=== PATIENT | male | born 1950 | race Caucasian/White ===

== ENCOUNTER 2017-07-24 05:57 | Inpatient (IN) | payer MEDICARE ==
--- NOTE | 2017-07-21 14:48 | Diagnostic Imaging Report ---
PROCEDURE: Frontal and lateral views of the chest. COMPARISON: None. INDICATIONS: PRE OPERATIVE CHEST X-RAY FOR KNEE SURGERY FINDINGS: Lines/tubes: None. Lungs: Hypoinflated lungs. Linear opacity in the lingula likely reflects subsegmental atelectasis. There is no evidence of consolidation or pulmonary edema. Pleura: There is no pleural effusion or pneumothorax. Eventration of the posterior left hemidiaphragm. Heart and mediastinum: Cardiac silhouette is unremarkable. Pulmonary vasculature is normal. Bones: No acute bony abnormality. IMPRESSION: 1. hypoinflated lungs, without acute cardiopulmonary abnormalities. Fam Fuchs M.D. Dictated by: Fam Fuchs M.D. on 07/21/2017 at 14:57 Electronically approved by: Fam Fuchs M.D. on 07/21/2017 at 14:57
[~2017-07-24] VITALS: Ht 180.3 cm; Wt 108.9 kg
[~2017-07-24 05:57] MED LIST: CELECOXIB 200 MG CAP ONE; DEXAMETHASONE SOD PHOS 10 MG/1 ML VIAL ONE; GABAPENTIN 300 MG CAP ONE; OXYBUTYNIN CHLOR5 MG PO; PAROXETINE HCL40 MG PO
[2017-07-24] MEDS ORDERED: VANCOMYCIN 1GM/NS 250 ML 250 ML ONE (05:58)
--- OUTSIDE RECORDS SUMMARY | 2017-07-24 05:59 | XMS REPORT ---
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 Allergies, Adverse Reactions, Alerts This patient has no known allergies or adverse reactions. Medications This patient has no known medications. Results Test Description Test Time Test Comments Text Results Atomic Results Result Comments CHEST 2 VIEWS [place] [address] Patient Name: LOUIE LLOYD MR #: [id number] : 1950 Age/Sex: 67/M Req # : [id number] Adm Physician: Ordered by: KARLO SAGASTUME MD Report #: [id number] Location: OR Room/Bed: Procedure: [id number] DX/CHEST 2 VIEWS Exam Date: 07/21/17 Exam Time: 1410 REPORT STATUS: Signed PROCEDURE: Frontal and lateral views of the chest. COMPARISON: None. INDICATIONS: PRE OPERATIVE CHEST X- RAY FOR KNEE SURGERY FINDINGS: Lines/tubes: None. Lungs: Hypoinflated lungs. Linear opacity in the lingula likely reflects subsegmental atelectasis. There is no evidence of consolidation or pulmonary edema. Pleura: There is no pleural effusion or pneumothorax. Eventration of the posterior left hemidiaphragm. Heart and mediastinum: Cardiac silhouette is unremarkable. Pulmonary vasculature is normal. Bones: No acute bony abnormality. IMPRESSION: 1. hypoinflated lungs, without acute cardiopulmonary abnormalities. Guera Fuchs M.D. Dictated by: Guera Fuchs M.D. on 07/21/2017 at 14:57 Electronically approved by: Guera Fuchs M.D. on 07/21/2017 at 14:57 Dictated By: GUERA FUCHS MD [id number] Transcribed By: MONTSERRAT on 07/21/17 [id number] COPY TO: KARLO SAGASTUME MD
[2017-07-24] MEDS ORDERED: MUPIROCIN 2% OINT 22 GM TUBE ONE (06:13)
[2017-07-24] MEDS ORDERED: TRANEXAMIC ACID 1,000 MG/10 ML ML ONE (06:13)
[2017-07-24] MEDS ORDERED: BACITRACIN 50,000 UNIT VIAL ONE (06:14)
[2017-07-24] MEDS ORDERED: LIDOCAINE 1% W/EPINEPHRINE 20 ML VIAL ONE (06:50)
[2017-07-24] MEDS ORDERED: ROPIVACAINE 0.5% 5 MG/ML 30 ML SDV ONE (06:50)
[2017-07-24] MEDS ORDERED: ROPIVACAINE 246.25 MG, EPINEPHRINE HCL 1:1000 0.5 MG, CLONIDINE HCL 0.08 MG, KETOROLAC ... INJ ONE ×5 (07:30)
[2017-07-24] MEDS ORDERED: DOCUSATE SODIUM 100 MG CAP PO PRN (08:45)
[2017-07-24] MEDS ORDERED: ACETAMINOPHEN 650 MG SUPP PR PRN (08:45)
[2017-07-24] MEDS ORDERED: DIPHENHYDRAMINE HCL INJ 50 MG/ML VIAL IM/IV PRN (08:45)
[2017-07-24] MEDS ORDERED: PROMETHAZINE HCL (IM) 25 MG/ML VIAL IM PRN (08:45)
[2017-07-24] MEDS ORDERED: KETOROLAC TROMETHAMINE 30 MG/ML VIAL IV PRN (08:45)
[2017-07-24] MEDS ORDERED: HYDROCODONE/APAP 5MG-325MG TAB PO PRN (08:45)
[2017-07-24] MEDS ORDERED: ONDANSETRON HCL INJ 2 MG/ML VIAL IV PRN (08:45)
--- NOTE | 2017-07-24 09:41 | Diagnostic Imaging Report ---
PROCEDURE:KNEE LEFT 1-2 VIEWS TECHNIQUE:AP and crosstable lateral views left knee INDICATION:Postoperative evaluation COMPARISON:None. FINDINGS: See conclusion. CONCLUSION: 1. Total left knee arthroplasty intact and in anatomic alignment. 2. Expected postsurgical changes including soft tissue swelling, joint gas, fluid and overlying surgical yue. 3. No acute abnormality. Dictated by: Oj Zafar M.D. on 07/24/2017 at 9:50 Electronically approved by: Oj Zafar M.D. on 07/24/2017 at 9:50
[2017-07-24] MEDS ORDERED: FENTANYL CITRATE/PF 100MCG/2 ML INJ ONE ×2 (10:56→18:36)
--- NOTE | 2017-07-24 11:16 | Operative Report ---
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 Throughout this case, my PA's assistance was necessary for retraction of soft tissue and positioning of the extremity. This allows for efficient and technically successful execution of the operation and is considered medically necessary. PREOPERATIVE DIAGNOSIS: Osteoarthritis, left knee. POSTOPERATIVE DIAGNOSIS: Osteoarthritis, left knee. PROCEDURE: Left total knee arthroplasty. INDICATIONS: The patient is a 67-year-old gentleman who has end-stage arthritis of his left knee. He has failed conservative management and would now like to proceed with a left total knee replacement. The risks and benefits have been explained. The recovery and hospital stay have been discussed. The implants have been discussed. He states he understands and wishes to proceed. DESCRIPTION OF PROCEDURE: The patient was brought to the operating room and placed under general anesthetic. He received a regional block, prophylactic antibiotics, and tranexamic acid in the holding area. His left lower extremity was prepped and draped in a sterile manner. A preoperative time out was performed. The extremity was exsanguinated and a proximal tourniquet was inflated to 300 mmHg. A standard anterior approach with a medial parapatellar arthrotomy was performed. Clear synovial fluid was removed from the joint. A slightly more extensive medial soft tissue release than normal was necessary due to his varus malalignment. The knee was brought up into flexion with the patella everted. The remnant of the cruciate ligaments were excised. Marginal osteophytes and meniscal remnants were removed. A Hernandez and Nephew posterior stabilized Selene II knee system was used throughout the case. An extramedullary cutting guide was used to resect the proximal tibia. The cut was referenced off of the least affected lateral compartment. The tibial baseplate was a size #7. The central fin punch was impacted and attention was directed towards the distal femur. An intramedullary cutting guide was used to resect the distal femur in 6 degrees of valgus and rotation referenced off of a combination of landmarks including the posterior condyles, Whitesides line, and the epicondylar axis. The femoral component was also a size #7. The anterior and posterior chamfer cuts were made. Trial reductions were performed. A 9 mm tibial insert provided optimal soft tissue balancing in flexion and extension. The patella was then resurfaced with a 32 mm x 7.5 mm patellar button. The thickness was checked before and after resurfacing and was right at 23 mm. Patellar tracking was noted to be concentric. The trial implants were then removed. A 100 mL premixed pericapsular ELISEO injection was placed into the soft tissue. The knee was thoroughly irrigated with a Pulsavac. The components were cemented into place using a single mix of high-viscosity Simplex cement, pre-loaded with antibiotics. Care was taken to remove all extravasated cement. The wound was further irrigated while the cement cured. The arthrotomy was then closed with interrupted #1 Ethibond. The knee was put through flexion and extension to ensure a secure closure. The skin was closed with subcuticular Vicryl and yue. A sterile bandage was applied. The patient was extubated and transported to the recovery room in stable condition. Estimated blood loss was minimal. All needle and sponge counts were correct. Job#: [id number] BLAISE
[2017-07-24 12:35] VITALS: BP 90/44
[2017-07-24] MEDS: SODIUM CHLORIDE 0.9% 1000ML 1,000 ML IV SCH ×2 (12:48→18:32)
[2017-07-24] MEDS: ACETAMINOPHEN 1000 MG/100 ML IV SCH ×3 (12:48→23:59)
[2017-07-24 13:20] VITALS: BP 113/64
[2017-07-24 13:31] VITALS: BP 113/64
[2017-07-24 16:10] VITALS: BP 101/59
[2017-07-24] MEDS: ASPIRIN 325 MG TAB PO SCH (17:00)
[2017-07-24] MEDS: CELECOXIB 100 MG CAP PO SCH (17:00)
[2017-07-24] MEDS: OXYBUTYNIN CHLORIDE 5 MG TAB PO SCH (18:06)
[2017-07-24] MEDS: VANCOMYCIN 1GM/NS 250 ML 250 ML IV SCH (18:06)
[2017-07-24] MEDS ORDERED: LIDOCAINE 2%/ EPINEPHRINE 20ML MDV ONE (18:26)
[2017-07-24] MEDS ORDERED: MIDAZOLAM HCL 2 MG/2 ML VIAL ONE (18:36)
[2017-07-24] MEDS ORDERED: ONDANSETRON HCL INJ 2 MG/ML VIAL ONE (18:39)
[2017-07-24] MEDS ORDERED: EPHEDRINE SULFATE INJ 50 MG/10 ML SYR ONE (18:39)
[2017-07-24] MEDS ORDERED: SEVOFLURANE INHAL SOLN 250 ML PEN BTL ONE (18:39)
[2017-07-24] MEDS ORDERED: LIDOCAINE HCL 2% LOCAL INJ 5 ML SDV VIAL INJ ONE (18:39)
[2017-07-24] MEDS ORDERED: PROPOFOL IV EMULSION 10 MG/ML 20 ML VIAL ONE (18:39)
[2017-07-24] MEDS ORDERED: GLYCOPYRROLATE INJ 1MG/ 5 ML SYR ONE (18:39)
[2017-07-24 20:00] VITALS: BP 107/60
[2017-07-24] MEDS ORDERED: ZOLPIDEM TARTRATE 5 MG TAB PO PRN (21:00)
[2017-07-24] MEDS: HYDROCODONE/APAP 7.5MG-325MG 1 EA TAB PO PRN (21:28)
[2017-07-25 02:32] VITALS: BP 102/53
[2017-07-25] MEDS: SODIUM CHLORIDE 0.9% 1000ML 1,000 ML IV SCH (04:32)
[2017-07-25] MEDS: ACETAMINOPHEN 1000 MG/100 ML IV SCH (05:46)
[2017-07-25] MEDS: VANCOMYCIN 1GM/NS 250 ML 250 ML IV SCH (06:02)
[2017-07-25 06:06] VITALS: BP 107/55
[2017-07-25 06:09] VITALS: BP 107/55
[2017-07-25 07:05] LABS: HEMATOCRIT 35.4 % (38.2-49.6); HEMOGLOBIN 11.6 g/dL (14.0-18.0)
[2017-07-25] MEDS: HYDROCODONE/APAP 7.5MG-325MG 1 EA TAB PO PRN ×2 (07:41→13:47)
[2017-07-25 08:13] VITALS: BP 107/57
[2017-07-25] MEDS: ASPIRIN 325 MG TAB PO SCH (08:27)
[2017-07-25] MEDS: CELECOXIB 100 MG CAP PO SCH (08:27)
[2017-07-25] MEDS: OXYBUTYNIN CHLORIDE 5 MG TAB PO SCH (08:27)
[2017-07-25] MEDS ORDERED: ACETAMINOPHEN 1000 MG/100 ML IV PRN (08:45)
[2017-07-25 09:43] VITALS: BP 107/57
[2017-07-25] MEDS ORDERED: ASPIRIN325 MG PO (11:00)
[2017-07-25 11:29] VITALS: BP 117/58
[2017-07-25] MEDS ORDERED: NORCO 7.5-3251 EACH PO (13:09)
== END 2017-07-25 13:57 | disposition home health service (06) | DRG 470 ==
LOC: OR 05:57 → MED/SURG 12:00
PROVIDERS: ADMIT Specialist; ATTEND Specialist
PROC: 0SRD0J9 Replacement of Left Knee Joint with Synthetic Substitute, Cemented, Open Approach (ICD-10-PCS; principal; 2017-07-24 07:00)
DX: M17.12 Unilateral primary osteoarthritis, left knee (principal); Z88.0 Allergy status to penicillin; Z79.82 Long term (current) use of aspirin; Z88.2 Allergy status to sulfonamides
CPT/HCPCS: 36415; 71046; 85014; 85018; 86850; 86900; 86920; J0171; J1100; J1885; J2001; J2250; J2405; J2795; J3370; J7030